=== PATIENT | female | born 1965 | race Caucasian/White ===

== ENCOUNTER 2022-01-01 14:31 | Outpatient (CLI) | payer OTHER, SELFPAY ==
--- NOTE | 2022-01-01 14:53 | XRR_ITS ---
PROCEDURE INFORMATION: Exam: XR Left Foot Exam date and time: 01/01/2022 2:56 PM Age: 56 years old Clinical indication: Pain; Foot; Left; Additional info: Concern for fracture TECHNIQUE: Imaging protocol: Radiologic exam of the Left foot. Views: 3 or more views. COMPARISON: CR XR knee LT 3V* [id number] 06/18/2018 3:02 PM FINDINGS: Bones/joints: No acute fracture is seen. The joints are unremarkable. Soft tissues: No joint effusion is seen. XR/XR foot LT min 3V* [id number] IMPRESSION: No evidence of acute fracture or dislocation.
== END 2022-01-01 14:32 | disposition home or self-care (01) ==
LOC: RAD 14:32
PROVIDERS: PCP Family Medicine; Visit Provider Family Medicine
DX: M79.672 Pain in left foot (principal)
CPT/HCPCS: 73630

== ENCOUNTER → 2022-09-09 12:51 | Outpatient (BNVA) | payer OTHER, SELFPAY | PROVIDERS: PCP Family Medicine; Visit Provider Family Medicine | DX: R00.0 Tachycardia, unspecified (principal); F43.9 Reaction to severe stress, unspecified; G47.00 Insomnia, unspecified; R00.2 Palpitations; E03.9 Hypothyroidism, unspecified; Z13.6 Encounter for screening for cardiovascular disorders | CPT/HCPCS: 80053; 80061; 84443; 85025 ==

== ENCOUNTER → 2022-09-30 09:54 | Outpatient (BNVA) | payer OTHER, SELFPAY | PROVIDERS: PCP Family Medicine; Visit Provider Family Medicine | DX: E03.9 Hypothyroidism, unspecified (principal); R74.01 Elevation of levels of liver transaminase levels; R79.89 Other specified abnormal findings of blood chemistry | CPT/HCPCS: 82977; 83615; 84443; 84450; 84460 ==

== ENCOUNTER → 2022-11-11 11:12 | Outpatient (BNVA) | payer OTHER, SELFPAY | PROVIDERS: PCP Family Medicine; Visit Provider Family Medicine | DX: R79.89 Other specified abnormal findings of blood chemistry (principal) | CPT/HCPCS: 84443 ==

== ENCOUNTER → 2022-12-23 10:37 | Outpatient (BNVA) | payer OTHER, SELFPAY | PROVIDERS: PCP Family Medicine; Visit Provider Family Medicine | DX: R74.01 Elevation of levels of liver transaminase levels (principal); R79.89 Other specified abnormal findings of blood chemistry | CPT/HCPCS: 80053; 84443 ==

== ENCOUNTER → 2023-03-25 12:41 | Outpatient (BNVA) | payer OTHER, SELFPAY | PROVIDERS: PCP Family Medicine; Visit Provider Family Medicine | DX: R79.89 Other specified abnormal findings of blood chemistry (principal) | CPT/HCPCS: 84443 ==

== ENCOUNTER → 2024-04-20 09:00 | Outpatient (BNVA) | payer OTHER, SELFPAY | PROVIDERS: PCP Family Medicine; Visit Provider Family Medicine | DX: E03.9 Hypothyroidism, unspecified (principal); R79.89 Other specified abnormal findings of blood chemistry; Z00.00 Encounter for general adult medical examination without abnormal findings; M25.521 Pain in right elbow | CPT/HCPCS: 80053; 80061; 84443 ==

== ENCOUNTER 2024-06-25 11:40 | Outpatient (CLI) | payer OTHER, SELFPAY ==
--- NOTE | 2024-06-25 12:15 | MR_ITS ---
WS: [id number] EXAMINATION: MR elbow RT wo con* [id number] ORDER DATE: 06/25/2024 12:07 PM COMPARISON: None. HISTORY: M25.529 - Pain in unspecified elbow CONTRAST: None.None. TECHNIQUE: Axial T1, axial T2 fat sat, coronal T1, coronal proton density fat sat, coronal STIR, sagittal proton density fat sat, and axial fat sat 3D performed. After contrast, axial T1 fat sat, coronal T1 fat sat, and sagittal T1 fat sat were performed. FINDINGS: Normal bone marrow signal in the humerus. Normal radial head and neck. Normal olecranon. Normal coronoid process. No acute fractures. Small focus of subchondral cystic change involving the capitellum extending to the dorsal articular surface. This may be due to prior injury or repetitive microtrauma. No evidence of avascular necrosis. Medial and lateral collateral ligaments appear intact. Slight tendinopathy common extensor tendon origin. No significant joint effusion. Brachialis and biceps brachii insertions appear normal. No other acute findings. MR/MR elbow RT wo con* [id number] IMPRESSION: 1. 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 This zan ures 3.5 mm. No significant surrounding edema. This is likely due to prior trau ma/microtrauma or degenerative change 2. Small amount of edema/resolving hematoma along the dorsal elbow presumably from recent trauma. 3. Small amount of tendinopathy involving the common extensor tendon origin. 4. No acute fractures. 5. No significant joint effusion. 6. No other suspicious findings.
== END 2024-06-25 11:41 | disposition home or self-care (01) ==
PROVIDERS: PCP Family Medicine; Visit Provider Family Medicine
DX: M25.521 Pain in right elbow (principal); R93.6 Abnormal findings on diagnostic imaging of limbs; M67.823 Other specified disorders of tendon, right elbow
CPT/HCPCS: 73221

== ENCOUNTER → 2025-01-20 10:39 | Outpatient (BNVA) | payer OTHER, SELFPAY | PROVIDERS: PCP Family Medicine; Visit Provider Family Medicine | DX: E03.9 Hypothyroidism, unspecified (principal) | CPT/HCPCS: 84443 ==